=== PATIENT | female | born 1955 | race American Indian/Alaskan Native ===

== ENCOUNTER 2017-09-21 22:33 | Inpatient (IN) | payer BC ==
[2017-09-22 19:49] VITALS: BMI 40.5
--- NOTE | 2017-09-22 20:45 | CP.PCM.HP ---
History of Present Illness - History of Present Illness History of Present Illness: CC: here for rehab after L sided CVA HPI: This is a 62 y/o female with MHx significant for DM2, HLD, and HTN who is here for rehab after suffering a L sided CVA with residual L sided deficits in strength. Patient states that on 09/20 she had gone into [facility] ER with sudden onset R sided weakness and slurred speech, along with unsteady gait. Patient was admitted from the ER, and by the time she had arrived there her symptoms had started to resolve and NIHSS at that time did not warrant treatment with TPA. Patient had (likely MRI) imaging indicating acute L pontine CVA, though actual report does not appear to be in packet. Since that time patient has been improving but states she still has R sided UE/LE weakness. Denies CP, SOB, THAKUR; denies f/c/n/v/d. ROS: 14 systems reviewed, negative other than HPI MHx: DM2, HLD, HTN, L CVA SHx: None Allergies: NKDA Family Hx: No relevant family Hx per patient Social Hx: Lives with family, no tobacco, no EtOH Surrogate Dec Mkr: , info on chart Present on Admission - Present on Admission Any Indicators Present on Admission: No Meds Allergies/Adverse Reactions: Allergies Allergy/AdvReac Type Severity Reaction Status Date / Time No Known Allergies Allergy Verified 09/22/17 19:48 Physical Exam - Constitutional Appears: No Acute Distress - Head Exam Head Exam: ATRAUMATIC, NORMOCEPHALIC - Eye Exam Eye Exam: EOMI, PERRL - ENT Exam ENT Exam: Mucous Membranes Moist - Neck Exam Neck exam: Positive for: Full Rom - Respiratory Exam Respiratory Exam: Clear to Auscultation Bilateral, NORMAL BREATHING PATTERN - Cardiovascular Exam Cardiovascular Exam: REGULAR RHYTHM, +S1, +S2 - GI/Abdominal Exam GI & Abdominal Exam: Normal Bowel Sounds, Soft - Extremities Exam Extremities exam: Positive for: full ROM Additional comments: subtle weakness in R U/LE vs L U/LE, but still strength 5/5 throughout - Neurological Exam Neurological exam: Alert, CN II-XII Intact, Oriented x3 - Psychiatric Exam Psychiatric exam: Normal Affect, Normal Mood - Skin Skin Exam: Dry, Warm Assessment & Plan (1) Left pontine CVA Assessment and Plan: 62 y/o female with HTN, HLD, DM2 p/w L pontine CVA. 1) CVA -Cont ASA, Plavix, Statin -BP control -PT/OT, Rehab consult -Consider Echo if no documentation found as part of w/u 2) DM2 -Cont metformin -ACHS accucheck; SSI -DM diet 3) HTN -- cont BP medications from [facility] [place] 4) PPx -- SQ Lovenox, add protonix for GI PPx while on lovenox/asa/plavix Status: Acute (2) HTN (hypertension) Status: Acute (3) DM2 (diabetes mellitus, type 2) Status: Acute (4) HLD (hyperlipidemia) Status: Acute (5) DVT prophylaxis Status: Acute
[2017-09-22] MEDS: Insulin Lispro (humaLOG) 100 Units/ml Inj SC SCH (22:00)
[2017-09-23 07:17] LABS: HEMOGLOBIN 13.1 g/dL (12.0-16.0); MEAN CELL VOLUME 86.1 fl (81.0-99.0); MEAN CORPUSCULAR HEMOGLOBIN 28.4 pg (27.0-31.0); MEAN CORPUSCULAR HGB CONC 32.9 g/dL (33.0-37.0); RBC 4.62 Mil/uL (3.80-5.20); RED CELL DISTRIBUTION WIDTH 13.8 % (11.5-14.5); WHITE BLOOD COUNT 4.1 K/uL (4.8-10.8)
[2017-09-23] MEDS: Insulin Lispro (humaLOG) 100 Units/ml Inj SC SCH ×4 (07:22→21:28)
[2017-09-23 07:48] LABS: BLOOD UREA NITROGEN 14 mg/dl (7-17); CALCIUM 9.5 mg/dL (8.4-10.2); GFR AFRICAN-AMERICAN > 60; GFR NON-AFRICAN AMERICAN > 60
[2017-09-23] MEDS: Enoxaparin 40 mg Syringe SC SCH (08:30)
[2017-09-23] MEDS: Pantoprazole 40 mg EC Tab PO SCH (08:31)
[2017-09-23] MEDS ORDERED: Enoxaparin 40 mg Syringe SC SCH (09:00)
--- NOTE | 2017-09-23 13:54 | CP.PCM.CON ---
History of Present Illness - History of Present Illness History of Present Illness: Dr Hunt Coverage for Dr Hyman on Joselin Young, born 1955 who has been admitted to [facility] for acute inpatient rehabilitation. She is right hand dominant and had been in her usual state of health, not requiring an assistive device and was independent in her ADLs. She suffered a left CVA with right HP. She has fair neurological recovery to this point Review of Systems - Constitutional Constitutional: absent: Anorexia, Chills, Daytime Sleepiness - EENT Eyes: absent: Blind Spots Ears: absent: Decreased Hearing Nose/Mouth/Throat: absent: Nasal Congestion - Cardiovascular Cardiovascular: absent: Chest Pain - Respiratory Respiratory: absent: Dyspnea, Hemoptysis - Gastrointestinal Gastrointestinal: Constipation (for 3 days). absent: Belching - Genitourinary Genitourinary: absent: Dysuria - Musculoskeletal Musculoskeletal: absent: Back Pain - Integumentary Integumentary: absent: Bleeding Lesions - Neurological Neurological: Weakness. absent: Abnormal Movements, Tremor - Psychiatric Psychiatric: absent: Anxiety Past Patient History - Past Medical History & Family History Past Medical History?: Yes - Past Social History Smoking Status: Former Smoker Alcohol: None Drugs: Denies Home Situation {Lives}: With Family () - CARDIAC Hx Cardiac Disorders: Yes Hx Hypercholesterolemia: Yes Hx Hypertension: Yes - PULMONARY Hx Respiratory Disorders: No - NEUROLOGICAL HX Cerebrovascular Accident: Yes (09/20/2017) - HEENT Hx HEENT Problems: Yes Other/Comment: uses eyeglasses for reading - RENAL Hx Chronic Kidney Disease: No - ENDOCRINE/METABOLIC Hx Endocrine Disorders: Yes Hx Diabetes Mellitus Type 2: Yes - HEMATOLOGICAL/ONCOLOGICAL Hx Blood Disorders: No Hx AIDS: No Hx Human Immunodeficiency Virus (HIV): No - INTEGUMENTARY Hx Dermatological Problems: No - MUSCULOSKELETAL/RHEUMATOLOGICAL Hx Musculoskeletal Disorders: No Hx Falls: No - GASTROINTESTINAL Hx Gastrointestinal Disorders: No - GENITOURINARY/GYNECOLOGICAL Hx Genitourinary Disorders: No - PSYCHIATRIC Hx Psychophysiologic Disorder: No Hx Substance Use: No - SURGICAL HISTORY Hx Surgeries: Yes Other/Comment: surgery in ovary per patient - ANESTHESIA Hx Anesthesia: Yes Hx Anesthesia Reactions: No Hx Malignant Hyperthermia: No Meds Allergies/Adverse Reactions: Allergies Allergy/AdvReac Type Severity Reaction Status Date / Time No Known Allergies Allergy Verified 09/22/17 19:48 - Medications Medications: Current Medications Aspirin (Ecotrin) 81 mg PO DAILY [facility] Last Admin: 09/23/17 08:29 Dose: 81 mg Atorvastatin Calcium (Lipitor) 40 mg PO HS [facility] Last Admin: 09/22/17 23:01 Dose: 40 mg Clopidogrel Bisulfate (Plavix) 75 mg PO DAILY [facility] Last Admin: 09/23/17 08:30 Dose: 75 mg Enoxaparin Sodium (Lovenox) 40 mg SC DAILY [facility] PRN Reason: Protocol Last Admin: 09/23/17 08:30 Dose: 40 mg Hydrochlorothiazide (Hydrodiuril) 25 mg PO DAILY [facility] Last Admin: 09/23/17 08:30 Dose: 25 mg Insulin Human Lispro (Humalog) 0 units SC [facility] PRN Reason: Protocol Last Admin: 09/23/17 11:59 Dose: Not Given Losartan Potassium (Cozaar) 100 mg PO DAILY [facility] Last Admin: 09/23/17 08:29 Dose: 100 mg Metformin HCl (Glucophage) 1,000 mg PO BIDWM [facility] Last Admin: 09/23/17 08:30 Dose: 1,000 mg Pantoprazole Sodium (Protonix Ec Tab) 40 mg PO DAILY [facility] Last Admin: 09/23/17 08:31 Dose: 40 mg Physical Exam - Constitutional Appears: Well, Non-toxic, No Acute Distress - Head Exam Head Exam: ATRAUMATIC, NORMAL INSPECTION, NORMOCEPHALIC - Eye Exam Eye Exam: EOMI, Normal appearance - ENT Exam ENT Exam: Mucous Membranes Moist - Respiratory Exam Respiratory Exam: NORMAL BREATHING PATTERN - Cardiovascular Exam Cardiovascular Exam: REGULAR RHYTHM - GI/Abdominal Exam GI & Abdominal Exam: Distended. absent: Firm, Guarding - Extremities Exam Extremities exam: Negative for: calf tenderness, pedal edema - Neurological Exam Neurological exam: Alert, CN II-XII Intact, Oriented x3 - Psychiatric Exam Psychiatric exam: Normal Affect, Normal Mood - Skin Skin Exam: Warm Results - Vital Signs Recent Vital Signs: Last Vital Signs Temp 97.0 F L 09/23/17 09:48 Pulse 59 L 09/23/17 09:48 Resp 21 09/23/17 09:48 BP 160/73 H 09/23/17 09:48 Pulse Ox 97 09/23/17 09:48 - Labs Result Diagrams: 09/23/17 05:20 09/23/17 05:20 Labs: Laboratory Results - last 24 hr 09/22/17 09/23/17 09/23/17 21:53 05:20 05:20 WBC 4.1 L RBC 4.62 Hgb 13.1 Hct 39.8 MCV 86.1 MCH 28.4 MCHC 32.9 L RDW 13.8 Plt Count 239 Sodium 142 Potassium 3.6 Chloride 101 Carbon Dioxide 28 Anion Gap 17 BUN 14 Creatinine 0.9 Est GFR ( Amer) > 60 Est GFR (Non-Af Amer) > 60 POC Glucose (mg/dL) 135 H Random Glucose 123 H Calcium 9.5 09/23/17 09/23/17 05:24 11:53 WBC RBC Hgb Hct MCV MCH MCHC RDW Plt Count Sodium Potassium Chloride Carbon Dioxide Anion Gap BUN Creatinine Est GFR ( Amer) Est GFR (Non-Af Amer) POC Glucose (mg/dL) 111 H 113 H Random Glucose Calcium Assessment & Plan - Assessment and Plan (Free Text) Assessment: PT/OT to continue to help increase functional independence Team conference for d/c planning Pain: controlled Vascular: no evidence of DVT GI: + constipation. Will increase bowel regimen and give fleets tonight Patient is an excellent acute rehabilitation candidate and will have focused PT, OT and recreational therapy to help facilitate a safe and appropriate d/c plan Impairment code: 01.2
--- NOTE | 2017-09-23 13:58 | PCM.OPOC ---
Physiatry Overall Plan of Care - Overall Plan of Care Estimated Length of Stay in Weeks: 3 Rehab Impairment: Mobility, Gait, Balance, Coordination Etiologic Diagnosis: Cerebrovascular Accident Rehab/Medical Prognosis: Good - Anticipated Interventions Physical Therapy:: Yes Occupational Therapy:: Yes Speech Therapy:: No Recreational Therapy:: Yes - Therapy Goals Bed Mobility: Supervision Ambulation: Supervision Functional Positional Changes:: Supervision - Discharge Plan Discharge Destination: Home
[2017-09-23] MEDS ORDERED: Magnesium Hydroxide Susp 30 ml UD PO PRN (14:03)
[2017-09-24] MEDS: Insulin Lispro (humaLOG) 100 Units/ml Inj SC SCH (07:00)
[2017-09-24] MEDS: Pantoprazole 40 mg EC Tab PO SCH (08:09)
[2017-09-24] MEDS: Enoxaparin 40 mg Syringe SC SCH (08:10)
--- NOTE | 2017-09-24 11:40 | CP.PCM.PN ---
Subjective - Date & Time of Evaluation Date of Evaluation: 09/24/17 Time of Evaluation: 10:00 - Subjective Subjective: Patient seen and examined in her room. No new complaints. Tolerating therapies well. Denies f/c/n/v/d/cp/sob. Objective - Vital Signs/Intake and Output Vital Signs (last 24 hours): Temp Pulse Resp BP Pulse Ox 97.9 F 77 20 156/68 H 98 09/24/17 10:00 09/24/17 10:00 09/24/17 10:00 09/24/17 10:00 09/24/17 10:00 - Medications Medications: Current Medications Aspirin (Ecotrin) 81 mg PO DAILY [facility] Last Admin: 09/24/17 08:09 Dose: 81 mg Atorvastatin Calcium (Lipitor) 40 mg PO HS [facility] Last Admin: 09/23/17 21:28 Dose: 40 mg Clopidogrel Bisulfate (Plavix) 75 mg PO DAILY [facility] Last Admin: 09/24/17 08:09 Dose: 75 mg Diltiazem HCl (Cardizem Cd) 180 mg PO DAILY [facility] Docusate Sodium (Colace) 100 mg PO BID [facility] Last Admin: 09/24/17 08:08 Dose: 100 mg Enoxaparin Sodium (Lovenox) 40 mg SC DAILY [facility] PRN Reason: Protocol Last Admin: 09/24/17 08:10 Dose: 40 mg Hydrochlorothiazide (Hydrodiuril) 25 mg PO DAILY [facility] Last Admin: 09/24/17 08:09 Dose: 25 mg Insulin Human Lispro (Humalog) 0 units SC 0630 [facility] PRN Reason: Protocol Losartan Potassium (Cozaar) 100 mg PO DAILY [facility] Last Admin: 09/24/17 08:09 Dose: 100 mg Magnesium Hydroxide (Milk Of Magnesia) 30 ml PO DAILY [facility] PRN Reason: Constipation Last Admin: 09/23/17 14:32 Dose: 30 ml Metformin HCl (Glucophage) 1,000 mg PO BIDWM [facility] Last Admin: 09/24/17 08:09 Dose: 1,000 mg Pantoprazole Sodium (Protonix Ec Tab) 40 mg PO DAILY [facility] Last Admin: 09/24/17 08:09 Dose: 40 mg - Labs Labs: 09/23/17 05:20 09/23/17 05:20 - Additional Findings Additional findings: Physical exam: Constitutional- cooperative, awake, alert Head- NCAT, PERRL Eye- PERRL, EOMI ENT- normal exam, MMM. Neck- normal inspection, supple, no JVD Respiratory- CTAB, no wheezes rales rhonchi Cardiovascular- RRR, +S1, +S2 no MRG GI/Abdominal- normal bowel sounds, soft, no mass, no hsm Skin- warm, dry Extremities Exam- normal capillary refill, normal inspection Neurological Exam- mild right upper extremity weakness. Alert, awake, oriented Psych- normal mood, normal affect Assessment and Plan - Assessment and Plan (Free Text) Plan: This is a 62 y/o female with MHx significant for DM2, HLD, and HTN who is admitted to [facility] acute rehab after suffering a L sided CVA with residual L sided deficits in strength. Patient states that on 09/20 she had gone into [facility] [place] with sudden onset R sided weakness and slurred speech, along with unsteady gait. Patient was admitted from the ER, and by the time she had arrived there her symptoms had started to resolve and NIHSS at that time did not warrant treatment with TPA. Patient had imaging indicating acute L pontine CVA. Since that time patient has been improving but states she still has R sided UE/LE weakness. (1) Left pontine CVA Assessment and Plan: 62 y/o female with HTN, HLD, DM2 p/w L pontine CVA. 1) CVA -Cont ASA, Plavix, Statin -BP control -PT/OT, Rehab consult -Consider Echo if no documentation found as part of w/u 2) DM2 -Cont metformin -d/c accuchek and sliding scale- patient controlled without it -DM diet 3) HTN -- cont [place] medications [place] [facility] 4) PPx -- SQ Lovenox, add protonix for GI PPx while on lovenox/asa/plavix Status: Acute (2) HTN (hypertension) Status: Acute (3) DM2 (diabetes mellitus, type 2) Status: Acute (4) HLD (hyperlipidemia) Status: Acute (5) DVT prophylaxis Status: Acute
[2017-09-24] MEDS: diltiaZEM 180 mg/24 Hours CD Cap PO SCH (12:24)
[2017-09-25] MEDS: Insulin Lispro (humaLOG) 100 Units/ml Inj SC SCH (06:29)
[2017-09-25] MEDS: diltiaZEM 180 mg/24 Hours CD Cap PO SCH (08:20)
[2017-09-25] MEDS: Enoxaparin 40 mg Syringe SC SCH (08:20)
[2017-09-25] MEDS: Pantoprazole 40 mg EC Tab PO SCH (08:22)
[2017-09-25 16:29] LABS: HEMOGLOBIN 13.9 g/dL (12.0-16.0); MEAN CELL VOLUME 86.2 fl (81.0-99.0); MEAN CORPUSCULAR HEMOGLOBIN 28.7 pg (27.0-31.0); MEAN CORPUSCULAR HGB CONC 33.3 g/dL (33.0-37.0); RBC 4.85 Mil/uL (3.80-5.20); RED CELL DISTRIBUTION WIDTH 14.2 % (11.5-14.5); WHITE BLOOD COUNT 4.8 K/uL (4.8-10.8)
[2017-09-25 16:44] LABS: BLOOD UREA NITROGEN 16 mg/dl (7-17); GFR AFRICAN-AMERICAN > 60; GFR NON-AFRICAN AMERICAN > 60
[2017-09-25] MEDS: Sodium Chloride 0.9% 1,000 ML IV SCH (16:51)
--- NOTE | 2017-09-25 19:26 | CP.PCM.PN ---
Subjective - Date & Time of Evaluation Date of Evaluation: 09/25/17 Time of Evaluation: 13:00 - Subjective Subjective: patient with no complaints of any pain, problems with strenght and balance Objective - Vital Signs/Intake and Output Vital Signs (last 24 hours): Temp Pulse Resp BP Pulse Ox 97.7 F 67 20 125/58 L 100 09/25/17 07:57 09/25/17 08:21 09/25/17 07:57 09/25/17 08:21 09/25/17 07:57 - Medications Medications: Current Medications Aspirin (Ecotrin) 81 mg PO DAILY [facility] Last Admin: 09/25/17 08:21 Dose: 81 mg Atorvastatin Calcium (Lipitor) 40 mg PO HS [facility] Last Admin: 09/24/17 21:14 Dose: 40 mg Clopidogrel Bisulfate (Plavix) 75 mg PO DAILY [facility] Last Admin: 09/25/17 08:22 Dose: 75 mg Diltiazem HCl (Cardizem Cd) 180 mg PO DAILY [facility] Last Admin: 09/25/17 08:20 Dose: 180 mg Docusate Sodium (Colace) 100 mg PO BID [facility] Last Admin: 09/25/17 16:51 Dose: Not Given Enoxaparin Sodium (Lovenox) 40 mg SC DAILY [facility] PRN Reason: Protocol Last Admin: 09/25/17 08:20 Dose: 40 mg Hydrochlorothiazide (Hydrodiuril) 25 mg PO DAILY [facility] Last Admin: 09/25/17 08:21 Dose: 25 mg Sodium Chloride (Sodium Chloride 0.9%) 1,000 mls @ 60 mls/hr IV .[id number] [facility] Stop: 09/26/17 13:32 Last Admin: 09/25/17 16:51 Dose: 60 mls/hr Insulin Human Lispro (Humalog) 0 units SC 0630 [facility] PRN Reason: Protocol Last Admin: 09/25/17 06:29 Dose: Not Given Losartan Potassium (Cozaar) 100 mg PO DAILY [facility] Last Admin: 09/25/17 08:21 Dose: 100 mg Magnesium Hydroxide (Milk Of Magnesia) 30 ml PO DAILY [facility] PRN Reason: Constipation Last Admin: 09/23/17 14:32 Dose: 30 ml Metformin HCl (Glucophage) 1,000 mg PO BIDWM [facility] Last Admin: 09/25/17 16:51 Dose: 1,000 mg Ondansetron HCl (Zofran Inj) 4 mg IVP Q6 PRN PRN Reason: Nausea/Vomiting Last Admin: 09/25/17 13:50 Dose: 4 mg Pantoprazole Sodium (Protonix Ec Tab) 40 mg PO DAILY [facility] Last Admin: 09/25/17 08:22 Dose: 40 mg - Labs Labs: 09/25/17 16:16 09/25/17 16:16 - Head Exam Head Exam: ATRAUMATIC, NORMAL INSPECTION, NORMOCEPHALIC - Eye Exam Eye Exam: EOMI, Normal appearance, PERRL - ENT Exam ENT Exam: Mucous Membranes Moist, Normal Exam - Neck Exam Neck Exam: Full ROM, Normal Inspection. absent: Lymphadenopathy - Respiratory Exam Respiratory Exam: Clear to Ausculation Bilateral, NORMAL BREATHING PATTERN - Cardiovascular Exam Cardiovascular Exam: REGULAR RHYTHM, +S1, +S2. absent: Murmur - GI/Abdominal Exam GI & Abdominal Exam: Soft, Normal Bowel Sounds. absent: Tenderness - Rectal Exam Rectal Exam: NORMAL INSPECTION - Exam External exam: NORMAL EXTERNAL EXAM - Extremities Exam Extremities Exam: Full ROM, Normal Capillary Refill, Normal Inspection. absent : Joint Swelling, Pedal Edema - Neurological Exam Neurological Exam: Alert Neuro motor strength exam: Left Upper Extremity: 3, Right Upper Extremity: 3, Left Lower Extremity: 3, Right Lower Extremity: 3 Additional comments: problems with balance and coordination Assessment and Plan (1) DM2 (diabetes mellitus, type 2) Status: Acute (2) HLD (hyperlipidemia) Status: Acute (3) HTN (hypertension) Status: Acute (4) Left pontine CVA Assessment & Plan: plan for physical, occupational , rec and speech therapy Status: Acute
[2017-09-26] MEDS: Insulin Lispro (humaLOG) 100 Units/ml Inj SC SCH (06:34)
[2017-09-26] MEDS: Sodium Chloride 0.9% 1,000 ML IV SCH (06:35)
[2017-09-26] MEDS: diltiaZEM 180 mg/24 Hours CD Cap PO SCH (08:30)
[2017-09-26] MEDS: Enoxaparin 40 mg Syringe SC SCH (08:30)
[2017-09-26] MEDS: Pantoprazole 40 mg EC Tab PO SCH (08:31)
--- NOTE | 2017-09-26 12:22 | PSY.TMCNF ---
Nursing - Vital Signs Vital Signs (Last 8 hours): Vital Signs 09/26/17 09/26/17 09/26/17 08:03 08:30 08:31 Temperature 97.7 F Pulse Rate 73 73 73 Respiratory 20 Rate Blood Pressure 145/66 145/66 145/66 O2 Sat by Pulse 100 Oximetry Pain: 0 - Medications/Other Issues Comment: Pt at low nutritional risk. no goals. Follow-up due on 10/03/2017 - Bladder Management Bladder Pattern: Normal Voiding Method: Toilet - Bowel Management Bowel Pattern: Normal - Goals/Time Frame Comments: Pt was seen following OT session and agreeable to evaluation session. Pt was able to identify her leisure interests such as playing games on her tablet, cooking, cleaning, and spending time with family. 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 Pt reported that her goal is to return to work. Pt reported decrease R UE and decrease LE strength. Pt's mood was stable-positive during time of visit. Pt returned to room with family present. Physical Therapy - Bed Mobility Bed Mobility: Verbal Cues, Minimal Assistance Comment: vc for sequencing and safety - Transfers Wheelchair to Mat: Verbal Cues, Minimal Assistance Sit to Stand: Verbal Cues, Minimal Assistance Comment: vc for sequencing and safety, tamera hand placement during t/f - Ambulation Level of Assistance: Supervision Distance (ft.): 150 Assistive Devices: Single point cane - Stair Negotiation Stairs: Level of Assistance: Contact Guard Number of Stairs: 11 Stairs: Assistive Devices: Right Handrail - Standing Balance Static Stand: Minimal Assistance Dynamic Stand: Minimal Assistance, Moderate Assistance Comment: w/ RW - Pain Pain (assessed during therapy session): 0 - Insight/Carryover Insight/Carryover: Good - Patient/Family Education Comment: Patient was educated about AE, DME, safety, OT goals and plan of care. - Assessment/Plan Assessment: Patient is a 62 yo female demonstrates decreased standing balance/ tolerance, endurance, fine motor control and coordination, and hand strength, impacting increased independence with ADLs and functional activities. Patient will benefit from skilled OT services 5-6x/week to address above deficits to increase independence for discharge. [ End ] - Goals Timeframe: 2 weeks Goals: mod I tub bench transfers. mod I commode transfers. mod I transfers to bed and w/c. mod I lb self care. mod I Ub self care. mod I light home mgmt - Provider Therapist: Surekha Webb PT License Number: [id number] Occupational Therapy - Arousal/Attention/Orientation Patient Orientation: Person, Place, Time, Appropriate to Age, Appropriate to Situation - ADL/IADL Self Feeding: Supervision, Set-up Help Grooming: Supervision, Set-up Help Bathing-Upper Extremity: Minimal Assistance Bathing-Lower Extremity: Maximum Assistance Dressing-Upper Extremity: Minimal Assistance Dressing-Lower Extremity: Maximum Assistance - Sitting Balance Static Sitting: Independent without upper extremity support Dynamic Sitting: Requires supervision - Transfers Wheelchair to Bed Transfers: Minimal Assistance Toilet Transfers: Minimal Assistance - Wheelchair Management Level of Assistance: Minimal Assistance - Upper Extremity Status Right Upper Extremity Comment: WFL Left Upper Extremity Comment: WFL - Pain Pain (assessed during therapy session): 0 - Insight/Carryover Insight/Carryover: Good - Patient/Family Education Comment: Patient was educated about AE, DME, safety, OT goals and plan of care. - Assessment/Plan Assessment: Patient is a 62 yo female demonstrates decreased standing balance/ tolerance, endurance, fine motor control and coordination, and hand strength, impacting increased independence with ADLs and functional activities. Patient will benefit from skilled OT services 5-6x/week to address above deficits to increase independence for discharge. [ End ] - Goals Timeframe: 2 weeks Goals: mod I tub bench transfers. mod I commode transfers. mod I transfers to bed and w/c. mod I lb self care. mod I Ub self care. mod I light home mgmt - Provider Therapist: DANIEL Young/[facility] - Plan Assessment: Patient is a 62 yo female demonstrates decreased standing balance/ tolerance, endurance, fine motor control and coordination, and hand strength, impacting increased independence with ADLs and functional activities. Patient will benefit from skilled OT services 5-6x/week to address above deficits to increase independence for discharge. [ End ] Recreational Therapy - Participation Participation: Participates in Individual and/or Group Sessions - Attendance Attendance: 3-5 times per week - Activities Leisure Activities: Cards and Games - Socialization Level of Socialization: Initiates/interacts freely with care givers and peer - Assessment Assessment/Plan: Patient is a 62 yo female demonstrates decreased standing balance/tolerance, endurance, fine motor control and coordination, and hand strength, impacting increased independence with ADLs and functional activities. Patient will benefit from skilled OT services 5-6x/week to address above deficits to increase independence for discharge. [ End ] - Provider Therapist: Vandana Kc, [employer] #[id number] Nutrition - Current Diet Current Diet/ Supplement/ Feedings: Moderate consistent CHO heart healthy - Appetite Percent Meal Consumed: 75-100% - Assessment/Goals/Time Frame Assessment/Goals/Time Frame: Pt at low nutritional risk. no goals. Follow-up due on 10/03/2017 - Provider Provider: Shanika Tucker RD Case Management - Discharge Plan Discharge Plan: Home with significant other/family Rehabilitation Plan - Treatment Plan Treatment Plan: Physical Therapy, Occupational Therapy, Speech, Dietary, Patient /Family Education - Recommendation Recommendation: Physical Therapy, Occupational Therapy, Speech, Dietary, Patient /Family Education - Discharge Plan Discharge to: Home (october 11)
--- NOTE | 2017-09-26 13:13 | CP.PCM.PN ---
Subjective - Date & Time of Evaluation Date of Evaluation: 09/26/17 Time of Evaluation: 10:30 - Subjective Subjective: Patient seen and examined. Denied any complaint. Claimed she is doing better with PT/OT. Objective - Vital Signs/Intake and Output Vital Signs (last 24 hours): Temp Pulse Resp BP Pulse Ox 97.7 F 73 20 145/66 100 09/26/17 08:03 09/26/17 08:31 09/26/17 08:03 09/26/17 08:31 09/26/17 08:03 - Medications Medications: Current Medications Aspirin (Ecotrin) 81 mg PO DAILY REPLACED BY [facility] Last Admin: 09/26/17 08:31 Dose: 81 mg Atorvastatin Calcium (Lipitor) 40 mg PO HS REPLACED BY [facility] Last Admin: 09/25/17 21:07 Dose: 40 mg Clopidogrel Bisulfate (Plavix) 75 mg PO DAILY [facility] Last Admin: 09/26/17 08:31 Dose: 75 mg Diltiazem HCl (Cardizem Cd) 180 mg PO DAILY [facility] BY [facility] Last Admin: 09/26/17 08:30 Dose: 180 mg Docusate Sodium (Colace) 100 mg PO BID REPL[facility]ED BY [facility] Last Admin: 09/26/17 08:32 Dose: Not Given Enoxaparin Sodium (Lovenox) 40 mg SC DAILY [facility]PL[facility]ED BY [facility] PRN Reason: Protocol Last Admin: 09/26/17 08:30 Dose: 40 mg Hydrochlorothiazide (Hydrodiuril) 25 mg PO DAILY REPLACED BY [facility] Last Admin: 09/26/17 08:31 Dose: 25 mg Sodium Chloride (Sodium Chloride 0.9%) 1,000 mls @ 60 mls/hr IV .[id number] REPLACED BY [facility] Stop: 09/26/17 13:32 Last Admin: 09/26/17 06:35 Dose: 60 mls/hr Insulin Human Lispro (Humalog) 0 units SC 0630 REPLACED BY [facility] PRN Reason: Protocol Last Admin: 09/26/17 06:34 Dose: Not Given Losartan Potassium (Cozaar) 100 mg PO DAILY [facility]PL[facility]ED BY [facility] Last Admin: 09/26/17 08:31 Dose: 100 mg Magnesium Hydroxide (Milk Of Magnesia) 30 ml PO DAILY PRN PRN Reason: Constipation Last Admin: 09/23/17 14:32 Dose: 30 ml Metformin HCl (Glucophage) 1,000 mg PO BIDWM REPLACED BY [facility] Last Admin: 02/28/18 08:31 Dose: 1,000 mg Ondansetron HCl (Zofran Inj) 4 mg IVP Q6 PRN PRN Reason: Nausea/Vomiting Last Admin: 09/25/17 13:50 Dose: 4 mg Pantoprazole Sodium (Protonix Ec Tab) 40 mg PO DAILY [facility] Last Admin: 09/26/17 08:31 Dose: 40 mg - Labs Labs: 09/25/17 16:16 09/25/17 16:16 - Constitutional Appears: No Acute Distress - Head Exam Head Exam: ATRAUMATIC - Eye Exam Eye Exam: absent: Scleral icterus - ENT Exam ENT Exam: Mucous Membranes Moist - Neck Exam Neck Exam: absent: Meningismus - Respiratory Exam Respiratory Exam: absent: Rhonchi, Wheezes, Respiratory Distress - Cardiovascular Exam Cardiovascular Exam: REGULAR RHYTHM, +S1, +S2 - GI/Abdominal Exam GI & Abdominal Exam: Soft. absent: Tenderness - Rectal Exam Rectal Exam: Deferred - Neurological Exam Neurological Exam: Alert, Oriented x3 - Psychiatric Exam Psychiatric exam: Normal Affect - Skin Skin Exam: Dry, Intact Assessment and Plan - Assessment and Plan (Free Text) Assessment: 62 yo female with history of DM2, HLD and HTN was admitted at [facility] on 09/20/2017 because of sudden onset of right sided weakness and slurred speech which resolved by the time she was seen in the ER. However imaging showed acute left pontine infarct. She was transferred to [facility] for acute rehab. 1. CVA continue ASA, Plavix and statin BP control continue PT/OT 2. DM2 BS controlled continue Metformin 3. HTN BP stable continue Dlitiazem, HCTZ and Losartan 4. DVT prophylaxis on Lovenox
--- NOTE | 2017-09-26 14:36 | CP.PCM.PN ---
Subjective - Date & Time of Evaluation Date of Evaluation: 09/24/17 Time of Evaluation: 15:00 - Subjective Subjective: no acute complaints at present Objective - Vital Signs/Intake and Output Vital Signs (last 24 hours): Temp Pulse Resp BP Pulse Ox 97.7 F 73 20 145/66 100 09/26/17 08:03 09/26/17 08:31 09/26/17 08:03 09/26/17 08:31 09/26/17 08:03 - Medications Medications: Current Medications Aspirin (Ecotrin) 81 mg PO DAILY [facility] Last Admin: 09/26/17 08:31 Dose: 81 mg Atorvastatin Calcium (Lipitor) 40 mg PO HS [facility] Last Admin: 09/25/17 21:07 Dose: 40 mg Clopidogrel Bisulfate (Plavix) 75 mg PO DAILY [facility] Last Admin: 09/26/17 08:31 Dose: 75 mg Diltiazem HCl (Cardizem Cd) 180 mg PO DAILY [facility] Last Admin: 09/26/17 08:30 Dose: 180 mg Docusate Sodium (Colace) 100 mg PO BID [facility] Last Admin: 09/26/17 08:32 Dose: Not Given Enoxaparin Sodium (Lovenox) 40 mg SC DAILY [facility] PRN Reason: Protocol Last Admin: 09/26/17 08:30 Dose: 40 mg Hydrochlorothiazide (Hydrodiuril) 25 mg PO DAILY [facility] Last Admin: 09/26/17 08:31 Dose: 25 mg Insulin Human Lispro (Humalog) 0 units SC 0630 [facility] PRN Reason: Protocol Last Admin: 09/26/17 06:34 Dose: Not Given Losartan Potassium (Cozaar) 100 mg PO DAILY [facility] Last Admin: 09/26/17 08:31 Dose: 100 mg Magnesium Hydroxide (Milk Of Magnesia) 30 ml PO DAILY PRN PRN Reason: Constipation Last Admin: 09/23/17 14:32 Dose: 30 ml Metformin HCl (Glucophage) 1,000 mg PO BIDWM [facility] Last Admin: 09/26/17 08:31 Dose: 1,000 mg Ondansetron HCl (Zofran Inj) 4 mg IVP Q6 PRN PRN Reason: Nausea/Vomiting Last Admin: 09/25/17 13:50 Dose: 4 mg Pantoprazole Sodium (Protonix Ec Tab) 40 mg PO DAILY [facility] Last Admin: 09/26/17 08:31 Dose: 40 mg - Labs Labs: 09/25/17 16:16 09/25/17 16:16 - Head Exam Head Exam: ATRAUMATIC, NORMAL INSPECTION, NORMOCEPHALIC - Eye Exam Eye Exam: EOMI, Normal appearance, PERRL Pupil Exam: NORMAL ACCOMODATION - ENT Exam ENT Exam: Mucous Membranes Moist, Normal Exam - Neck Exam Neck Exam: Full ROM, Normal Inspection - Respiratory Exam Respiratory Exam: NORMAL BREATHING PATTERN - Cardiovascular Exam Cardiovascular Exam: REGULAR RHYTHM - GI/Abdominal Exam GI & Abdominal Exam: Soft, Normal Bowel Sounds - Rectal Exam Rectal Exam: NORMAL INSPECTION - Exam External exam: NORMAL EXTERNAL EXAM - Extremities Exam Extremities Exam: Full ROM, Normal Capillary Refill, Normal Inspection - Back Exam Back Exam: NORMAL INSPECTION - Neurological Exam Neurological Exam: Alert, Awake Neuro motor strength exam: Left Upper Extremity: 3, Right Upper Extremity: 3, Left Lower Extremity: 3, Right Lower Extremity: 3 - Psychiatric Exam Psychiatric exam: Normal Affect, Normal Mood - Skin Skin Exam: Dry, Intact Assessment and Plan (1) DM2 (diabetes mellitus, type 2) Status: Acute (2) HLD (hyperlipidemia) Status: Acute (3) HTN (hypertension) Status: Acute (4) Left pontine CVA Assessment & Plan: plan for pt, ot, rec and speech therapy Status: Acute
--- NOTE | 2017-09-26 14:39 | CP.PCM.PN ---
Subjective - Date & Time of Evaluation Date of Evaluation: 09/26/17 Time of Evaluation: 12:00 - Subjective Subjective: no acute complaints at present Objective - Vital Signs/Intake and Output Vital Signs (last 24 hours): Temp Pulse Resp BP Pulse Ox 97.7 F 73 20 145/66 100 09/26/17 08:03 09/26/17 08:31 09/26/17 08:03 09/26/17 08:31 09/26/17 08:03 - Medications Medications: Current Medications Aspirin (Ecotrin) 81 mg PO DAILY [facility] Last Admin: 09/26/17 08:31 Dose: 81 mg Atorvastatin Calcium (Lipitor) 40 mg PO HS [facility] Last Admin: 09/25/17 21:07 Dose: 40 mg Clopidogrel Bisulfate (Plavix) 75 mg PO DAILY [facility] Last Admin: 09/26/17 08:31 Dose: 75 mg Diltiazem HCl (Cardizem Cd) 180 mg PO DAILY [facility] Last Admin: 09/26/17 08:30 Dose: 180 mg Docusate Sodium (Colace) 100 mg PO BID [facility] Last Admin: 09/26/17 08:32 Dose: Not Given Enoxaparin Sodium (Lovenox) 40 mg SC DAILY [facility] PRN Reason: Protocol Last Admin: 09/26/17 08:30 Dose: 40 mg Hydrochlorothiazide (Hydrodiuril) 25 mg PO DAILY [facility] Last Admin: 09/26/17 08:31 Dose: 25 mg Insulin Human Lispro (Humalog) 0 units SC 0630 [facility] PRN Reason: Protocol Last Admin: 09/26/17 06:34 Dose: Not Given Losartan Potassium (Cozaar) 100 mg PO DAILY [facility] Last Admin: 09/26/17 08:31 Dose: 100 mg Magnesium Hydroxide (Milk Of Magnesia) 30 ml PO DAILY PRN PRN Reason: Constipation Last Admin: 09/23/17 14:32 Dose: 30 ml Metformin HCl (Glucophage) 1,000 mg PO BIDWM [facility] Last Admin: 09/26/17 08:31 Dose: 1,000 mg Ondansetron HCl (Zofran Inj) 4 mg IVP Q6 PRN PRN Reason: Nausea/Vomiting Last Admin: 09/25/17 13:50 Dose: 4 mg Pantoprazole Sodium (Protonix Ec Tab) 40 mg PO DAILY [facility] Last Admin: 09/26/17 08:31 Dose: 40 mg - Labs Labs: 09/25/17 16:16 09/25/17 16:16 - Head Exam Head Exam: ATRAUMATIC, NORMAL INSPECTION, NORMOCEPHALIC - Eye Exam Eye Exam: EOMI, Normal appearance, PERRL - ENT Exam ENT Exam: Mucous Membranes Moist, Normal Exam - Neck Exam Neck Exam: Full ROM, Normal Inspection. absent: Lymphadenopathy - Respiratory Exam Respiratory Exam: Clear to Ausculation Bilateral, NORMAL BREATHING PATTERN - Cardiovascular Exam Cardiovascular Exam: REGULAR RHYTHM, +S1, +S2. absent: Murmur - GI/Abdominal Exam GI & Abdominal Exam: Soft, Normal Bowel Sounds. absent: Tenderness - Rectal Exam Rectal Exam: NORMAL INSPECTION - Exam External exam: NORMAL EXTERNAL EXAM - Extremities Exam Extremities Exam: Full ROM, Normal Capillary Refill, Normal Inspection. absent : Joint Swelling, Pedal Edema - Back Exam Back Exam: NORMAL INSPECTION - Neurological Exam Neuro motor strength exam: Left Upper Extremity: 3, Right Upper Extremity: 3, Left Lower Extremity: 3, Right Lower Extremity: 3 Additional comments: balance and coordination problems - Psychiatric Exam Psychiatric exam: Normal Affect, Normal Mood - Skin Skin Exam: Dry, Intact Assessment and Plan (1) DM2 (diabetes mellitus, type 2) Status: Acute (2) HLD (hyperlipidemia) Status: Acute (3) HTN (hypertension) Status: Acute (4) Left pontine CVA Assessment & Plan: plan pt, ot rec and speech therapy status post team conference for DC 10/06 Status: Acute
[2017-09-27] MEDS: Insulin Lispro (humaLOG) 100 Units/ml Inj SC SCH (07:55)
[2017-09-27] MEDS: diltiaZEM 180 mg/24 Hours CD Cap PO SCH (08:40)
[2017-09-27] MEDS: Enoxaparin 40 mg Syringe SC SCH (08:42)
[2017-09-27] MEDS: Pantoprazole 40 mg EC Tab PO SCH (08:42)
[2017-09-28] MEDS: Insulin Lispro (humaLOG) 100 Units/ml Inj SC SCH (06:30)
[2017-09-28 06:46] LABS: BLOOD UREA NITROGEN 15 mg/dl (7-17); CALCIUM 9.7 mg/dL (8.4-10.2); GFR AFRICAN-AMERICAN > 60; GFR NON-AFRICAN AMERICAN 57
[2017-09-28 07:28] LABS: HEMOGLOBIN 13.4 g/dL (12.0-16.0); MEAN CELL VOLUME 85.7 fl (81.0-99.0); MEAN CORPUSCULAR HEMOGLOBIN 28.8 pg (27.0-31.0); MEAN CORPUSCULAR HGB CONC 33.6 g/dL (33.0-37.0); RBC 4.64 Mil/uL (3.80-5.20); RED CELL DISTRIBUTION WIDTH 13.8 % (11.5-14.5); WHITE BLOOD COUNT 4.7 K/uL (4.8-10.8)
[2017-09-28] MEDS: Enoxaparin 40 mg Syringe SC SCH (08:52)
[2017-09-28] MEDS: Pantoprazole 40 mg EC Tab PO SCH (08:54)
[2017-09-28] MEDS: diltiaZEM 180 mg/24 Hours CD Cap PO SCH (08:54)
--- NOTE | 2017-09-28 10:50 | CP.PCM.PN ---
Subjective - Date & Time of Evaluation Date of Evaluation: 09/28/17 Time of Evaluation: 10:00 - Subjective Subjective: no acute complaints at present Objective - Vital Signs/Intake and Output Vital Signs (last 24 hours): Temp Pulse Resp BP Pulse Ox 97.7 F 69 22 143/69 98 09/28/17 09:29 09/28/17 09:29 09/28/17 09:29 09/28/17 09:29 09/28/17 09:29 - Medications Medications: Current Medications Aspirin (Ecotrin) 81 mg PO DAILY [facility] Last Admin: 09/28/17 08:54 Dose: 81 mg Atorvastatin Calcium (Lipitor) 40 mg PO HS [facility] Last Admin: 09/27/17 21:15 Dose: 40 mg Clopidogrel Bisulfate (Plavix) 75 mg PO DAILY [facility] Last Admin: 09/28/17 08:52 Dose: 75 mg Diltiazem HCl (Cardizem Cd) 180 mg PO DAILY [facility] Last Admin: 09/28/17 08:54 Dose: 180 mg Docusate Sodium (Colace) 100 mg PO BID [facility] Last Admin: 09/28/17 08:52 Dose: 100 mg Enoxaparin Sodium (Lovenox) 40 mg SC DAILY [facility] PRN Reason: Protocol Last Admin: 09/28/17 08:52 Dose: 40 mg Hydrochlorothiazide (Hydrodiuril) 25 mg PO DAILY [facility] Last Admin: 09/28/17 08:52 Dose: 25 mg Insulin Human Lispro (Humalog) 0 units SC 0630 [facility] PRN Reason: Protocol Last Admin: 09/28/17 06:30 Dose: Not Given Losartan Potassium (Cozaar) 100 mg PO DAILY [facility] Last Admin: 09/28/17 08:54 Dose: 100 mg Magnesium Hydroxide (Milk Of Magnesia) 30 ml PO DAILY PRN PRN Reason: Constipation Last Admin: 09/23/17 14:32 Dose: 30 ml Metformin HCl (Glucophage) 1,000 mg PO BIDWM [facility] Last Admin: 09/28/17 08:51 Dose: 1,000 mg Ondansetron HCl (Zofran Inj) 4 mg IVP Q6 PRN PRN Reason: Nausea/Vomiting Last Admin: 09/25/17 13:50 Dose: 4 mg Pantoprazole Sodium (Protonix Ec Tab) 40 mg PO DAILY [facility] Last Admin: 09/28/17 08:54 Dose: 40 mg - Labs Labs: 09/28/17 05:20 09/28/17 05:20 - Head Exam Head Exam: ATRAUMATIC, NORMAL INSPECTION, NORMOCEPHALIC - Eye Exam Eye Exam: EOMI, Normal appearance, PERRL Pupil Exam: NORMAL ACCOMODATION, PERRL - ENT Exam ENT Exam: Mucous Membranes Moist, Normal Exam - Neck Exam Neck Exam: Full ROM, Normal Inspection. absent: Lymphadenopathy - Respiratory Exam Respiratory Exam: Clear to Ausculation Bilateral, NORMAL BREATHING PATTERN - Cardiovascular Exam Cardiovascular Exam: REGULAR RHYTHM, +S1, +S2. absent: Murmur - GI/Abdominal Exam GI & Abdominal Exam: Soft, Normal Bowel Sounds. absent: Tenderness - Rectal Exam Rectal Exam: NORMAL INSPECTION - Exam External exam: NORMAL EXTERNAL EXAM - Extremities Exam Extremities Exam: Full ROM, Normal Capillary Refill, Normal Inspection. absent : Joint Swelling, Pedal Edema - Back Exam Back Exam: NORMAL INSPECTION - Neurological Exam Neurological Exam: Alert, Awake Neuro motor strength exam: Left Upper Extremity: 3, Right Upper Extremity: 3, Left Lower Extremity: 3, Right Lower Extremity: 3 Additional comments: problems with balance and coordination - Psychiatric Exam Psychiatric exam: Normal Affect, Normal Mood - Skin Skin Exam: Dry, Intact Assessment and Plan (1) DM2 (diabetes mellitus, type 2) Status: Acute (2) HLD (hyperlipidemia) Status: Acute (3) HTN (hypertension) Status: Acute (4) Left pontine CVA Assessment & Plan: plan for physical, occupational therapy range of motion, strenghtenign and gait training Status: Acute
--- NOTE | 2017-09-28 10:54 | CP.PCM.PN ---
Subjective - Date & Time of Evaluation Date of Evaluation: 09/28/17 Time of Evaluation: 10:25 - Subjective Subjective: Patient seen and examined. No complaint. Admitted feeling stronger. Objective - Vital Signs/Intake and Output Vital Signs (last 24 hours): Temp Pulse Resp BP Pulse Ox 97.7 F 69 22 143/69 98 09/28/17 09:29 09/28/17 09:29 09/28/17 09:29 09/28/17 09:29 09/28/17 09:29 - Medications Medications: Current Medications Aspirin (Ecotrin) 81 mg PO DAILY [facility] Last Admin: 09/28/17 08:54 Dose: 81 mg Atorvastatin Calcium (Lipitor) 40 mg PO HS [facility] Last Admin: 09/27/17 21:15 Dose: 40 mg Clopidogrel Bisulfate (Plavix) 75 mg PO DAILY [facility] Last Admin: 09/28/17 08:52 Dose: 75 mg Diltiazem HCl (Cardizem Cd) 180 mg PO DAILY [facility] Last Admin: 09/28/17 08:54 Dose: 180 mg Docusate Sodium (Colace) 100 mg PO BID [facility] Last Admin: 09/28/17 08:52 Dose: 100 mg Enoxaparin Sodium (Lovenox) 40 mg SC DAILY [facility] PRN Reason: Protocol Last Admin: 09/28/17 08:52 Dose: 40 mg Hydrochlorothiazide (Hydrodiuril) 25 mg PO DAILY [facility] Last Admin: 09/28/17 08:52 Dose: 25 mg Insulin Human Lispro (Humalog) 0 units SC 0630 [facility] PRN Reason: Protocol Last Admin: 09/28/17 06:30 Dose: Not Given Losartan Potassium (Cozaar) 100 mg PO DAILY [facility] Last Admin: 09/28/17 08:54 Dose: 100 mg Magnesium Hydroxide (Milk Of Magnesia) 30 ml PO DAILY PRN PRN Reason: Constipation Last Admin: 09/23/17 14:32 Dose: 30 ml Metformin HCl (Glucophage) 1,000 mg PO BIDWM [facility] Last Admin: 09/28/17 08:51 Dose: 1,000 mg Ondansetron HCl (Zofran Inj) 4 mg IVP Q6 PRN PRN Reason: Nausea/Vomiting Last Admin: 09/25/17 13:50 Dose: 4 mg Pantoprazole Sodium (Protonix Ec Tab) 40 mg PO DAILY [facility] Last Admin: 09/28/17 08:54 Dose: 40 mg - Labs Labs: 09/28/17 05:20 09/28/17 05:20 - Constitutional Appears: No Acute Distress - Head Exam Head Exam: ATRAUMATIC - Eye Exam Eye Exam: absent: Scleral icterus - ENT Exam ENT Exam: Mucous Membranes Moist - Neck Exam Neck Exam: absent: Meningismus - Respiratory Exam Respiratory Exam: absent: Rhonchi, Wheezes, Respiratory Distress - Cardiovascular Exam Cardiovascular Exam: REGULAR RHYTHM, +S1, +S2 - GI/Abdominal Exam GI & Abdominal Exam: Soft. absent: Tenderness - Rectal Exam Rectal Exam: Deferred - Neurological Exam Neurological Exam: Alert, Oriented x3 - Psychiatric Exam Psychiatric exam: Normal Affect - Skin Skin Exam: Dry, Intact Assessment and Plan - Assessment and Plan (Free Text) Assessment: 62 yo female with history of DM2, HLD and HTN was admitted at [facility] on 09/20/2017 because of sudden onset of right sided weakness and slurred speech which resolved by the time she was seen in the ER. Imaging however showed acute left pontine infarct. She was transferred to [facility] for acute rehab. 1. CVA continue ASA, Plavix and statin BP control continue PT/OT 2. DM2 BS controlled continue Metformin 1000mg PO BID 3. HTN BP stable continue Diltiazem, HCTZ and Losartan 4. DVT prophylaxis on Lovenox
[2017-09-29] MEDS: Insulin Lispro (humaLOG) 100 Units/ml Inj SC SCH (07:00)
[2017-09-29] MEDS: diltiaZEM 180 mg/24 Hours CD Cap PO SCH (08:48)
[2017-09-29] MEDS: Pantoprazole 40 mg EC Tab PO SCH (08:49)
[2017-09-29] MEDS: Enoxaparin 40 mg Syringe SC SCH (08:49)
[2017-09-30] MEDS: Insulin Lispro (humaLOG) 100 Units/ml Inj SC SCH (06:50)
[2017-09-30] MEDS: Pantoprazole 40 mg EC Tab PO SCH (08:30)
[2017-09-30] MEDS: Enoxaparin 40 mg Syringe SC SCH (08:30)
[2017-09-30] MEDS: diltiaZEM 180 mg/24 Hours CD Cap PO SCH (08:31)
[2017-10-01] MEDS: Insulin Lispro (humaLOG) 100 Units/ml Inj SC SCH (06:10)
[2017-10-01 07:06] LABS: BLOOD UREA NITROGEN 16 mg/dl (7-17); CALCIUM 9.8 mg/dL (8.4-10.2); GFR AFRICAN-AMERICAN > 60; GFR NON-AFRICAN AMERICAN > 60
[2017-10-01 07:10] LABS: HEMOGLOBIN 13.1 g/dL (12.0-16.0); MEAN CELL VOLUME 85.6 fl (81.0-99.0); MEAN CORPUSCULAR HEMOGLOBIN 28.7 pg (27.0-31.0); MEAN CORPUSCULAR HGB CONC 33.5 g/dL (33.0-37.0); RBC 4.57 Mil/uL (3.80-5.20); RED CELL DISTRIBUTION WIDTH 13.6 % (11.5-14.5); WHITE BLOOD COUNT 3.9 K/uL (4.8-10.8)
[2017-10-01] MEDS: diltiaZEM 180 mg/24 Hours CD Cap PO SCH (08:22)
[2017-10-01] MEDS: Pantoprazole 40 mg EC Tab PO SCH (08:23)
[2017-10-01] MEDS: Enoxaparin 40 mg Syringe SC SCH (08:23)
--- NOTE | 2017-10-01 17:48 | CP.PCM.PN ---
Subjective - Date & Time of Evaluation Date of Evaluation: 10/01/17 Time of Evaluation: 10:25 - Subjective Subjective: Patient seen and examined. No complaint. Objective - Vital Signs/Intake and Output Vital Signs (last 24 hours): Temp Pulse Resp BP Pulse Ox 98.1 F 70 21 135/59 L 99 10/01/17 10:00 10/01/17 10:00 10/01/17 10:00 10/01/17 10:00 10/01/17 10:00 - Medications Medications: Current Medications Aspirin (Ecotrin) 81 mg PO DAILY [facility] Last Admin: 10/01/17 08:23 Dose: 81 mg Atorvastatin Calcium (Lipitor) 40 mg PO HS [facility] Last Admin: 09/30/17 21:23 Dose: 40 mg Clopidogrel Bisulfate (Plavix) 75 mg PO DAILY [facility] Last Admin: 10/01/17 08:23 Dose: 75 mg Diltiazem HCl (Cardizem Cd) 180 mg PO DAILY [facility] Last Admin: 10/01/17 08:22 Dose: 180 mg Docusate Sodium (Colace) 100 mg PO BID [facility] Last Admin: 10/01/17 17:21 Dose: 100 mg Enoxaparin Sodium (Lovenox) 40 mg SC DAILY [facility] PRN Reason: Protocol Last Admin: 10/01/17 08:23 Dose: 40 mg Hydrochlorothiazide (Hydrodiuril) 25 mg PO DAILY [facility] Last Admin: 10/01/17 08:23 Dose: 25 mg Insulin Human Lispro (Humalog) 0 units SC 0630 [facility] PRN Reason: Protocol Last Admin: 10/01/17 06:10 Dose: Not Given Losartan Potassium (Cozaar) 100 mg PO DAILY [facility] Last Admin: 10/01/17 08:22 Dose: 100 mg Magnesium Hydroxide (Milk Of Magnesia) 30 ml PO DAILY PRN PRN Reason: Constipation Last Admin: 09/23/17 14:32 Dose: 30 ml Metformin HCl (Glucophage) 1,000 mg PO BIDWM [facility] Last Admin: 10/01/17 17:21 Dose: 1,000 mg Ondansetron HCl (Zofran Inj) 4 mg IVP Q6 PRN PRN Reason: Nausea/Vomiting Last Admin: 09/28/17 20:38 Dose: 4 mg Pantoprazole Sodium (Protonix Ec Tab) 40 mg PO DAILY [facility] Last Admin: 10/01/17 08:23 Dose: 40 mg - Labs Labs: 10/01/17 05:25 10/01/17 05:25 - Constitutional Appears: No Acute Distress - Head Exam Head Exam: ATRAUMATIC - Eye Exam Eye Exam: absent: Scleral icterus - ENT Exam ENT Exam: Mucous Membranes Moist - Neck Exam Neck Exam: absent: Meningismus - Respiratory Exam Respiratory Exam: absent: Rales, Rhonchi, Wheezes, Respiratory Distress - Cardiovascular Exam Cardiovascular Exam: REGULAR RHYTHM, +S1, +S2 - GI/Abdominal Exam GI & Abdominal Exam: Soft. absent: Tenderness - Rectal Exam Rectal Exam: Deferred - Neurological Exam Neurological Exam: Alert, Oriented x3 - Psychiatric Exam Psychiatric exam: Normal Affect - Skin Skin Exam: Dry, Intact Assessment and Plan - Assessment and Plan (Free Text) Assessment: 62 yo female with history of DM2, HLD and HTN [place] [facility] [place] because of sudden onset of right sided weakness and slurred speech which resolved by the time she was seen in the ER. Imaging however showed acute left pontine infarct. She was transferred to [facility] for acute rehab. 1. CVA continue ASA, Plavix and statin BP control continue PT/OT 2. DM2 BS controlled continue Metformin 1000mg PO BID 3. HTN BP stable continue Diltiazem, HCTZ and Losartan 4. DVT prophylaxis on Lovenox
[2017-10-02] MEDS: Insulin Lispro (humaLOG) 100 Units/ml Inj SC SCH (06:20)
[2017-10-02] MEDS: diltiaZEM 180 mg/24 Hours CD Cap PO SCH (08:57)
[2017-10-02] MEDS: Pantoprazole 40 mg EC Tab PO SCH (08:57)
[2017-10-02] MEDS: Enoxaparin 40 mg Syringe SC SCH (08:58)
--- NOTE | 2017-10-02 13:49 | CP.PCM.PN ---
Subjective - Date & Time of Evaluation Date of Evaluation: 09/30/17 Time of Evaluation: 10:35 - Subjective Subjective: no acute complaints Objective - Vital Signs/Intake and Output Vital Signs (last 24 hours): Temp Pulse Resp BP Pulse Ox 97.7 F 82 20 125/69 98 10/02/17 08:02 10/02/17 08:57 10/02/17 08:02 10/02/17 08:57 10/02/17 08:02 - Medications Medications: Current Medications Aspirin (Ecotrin) 81 mg PO DAILY [facility] Last Admin: 10/02/17 08:57 Dose: 81 mg Atorvastatin Calcium (Lipitor) 40 mg PO HS [facility] Last Admin: 10/01/17 22:24 Dose: 40 mg Clopidogrel Bisulfate (Plavix) 75 mg PO DAILY [facility] Last Admin: 10/02/17 08:57 Dose: 75 mg Diltiazem HCl (Cardizem Cd) 180 mg PO DAILY [facility] Last Admin: 10/02/17 08:57 Dose: 180 mg Docusate Sodium (Colace) 100 mg PO BID [facility] Last Admin: 10/02/17 08:58 Dose: 100 mg Enoxaparin Sodium (Lovenox) 40 mg SC DAILY [facility] PRN Reason: Protocol Last Admin: 10/02/17 08:58 Dose: 40 mg Hydrochlorothiazide (Microzide) 12.5 mg PO DAILY [facility] Last Admin: 10/02/17 11:54 Dose: 12.5 mg Insulin Human Lispro (Humalog) 0 units SC 0630 [facility] PRN Reason: Protocol Last Admin: 10/02/17 06:20 Dose: Not Given Losartan Potassium (Cozaar) 100 mg PO DAILY [facility] Last Admin: 10/02/17 08:56 Dose: 100 mg Magnesium Hydroxide (Milk Of Magnesia) 30 ml PO DAILY PRN PRN Reason: Constipation Last Admin: 09/23/17 14:32 Dose: 30 ml Metformin HCl (Glucophage) 1,000 mg PO BIDWM [facility] Last Admin: 10/02/17 08:56 Dose: 1,000 mg Ondansetron HCl (Zofran Inj) 4 mg IVP Q6 PRN PRN Reason: Nausea/Vomiting Last Admin: 09/28/17 20:38 Dose: 4 mg Pantoprazole Sodium (Protonix Ec Tab) 40 mg PO DAILY [facility] Last Admin: 10/02/17 08:57 Dose: 40 mg - Labs Labs: 10/01/17 05:25 10/01/17 05:25 - Head Exam Head Exam: ATRAUMATIC, NORMAL INSPECTION, NORMOCEPHALIC - Eye Exam Eye Exam: EOMI, Normal appearance, PERRL Pupil Exam: NORMAL ACCOMODATION, PERRL - ENT Exam ENT Exam: Mucous Membranes Moist, Normal Exam - Neck Exam Neck Exam: Full ROM, Normal Inspection. absent: Lymphadenopathy - Respiratory Exam Respiratory Exam: Clear to Ausculation Bilateral, NORMAL BREATHING PATTERN - Cardiovascular Exam Cardiovascular Exam: REGULAR RHYTHM, +S1, +S2. absent: Murmur - GI/Abdominal Exam GI & Abdominal Exam: Soft, Normal Bowel Sounds. absent: Tenderness - Exam External exam: NORMAL EXTERNAL EXAM - Extremities Exam Extremities Exam: Full ROM, Normal Capillary Refill, Normal Inspection. absent : Joint Swelling, Pedal Edema - Back Exam Back Exam: NORMAL INSPECTION - Neurological Exam Neurological Exam: Alert, Awake Neuro motor strength exam: Left Upper Extremity: 3, Right Upper Extremity: 3, Left Lower Extremity: 3, Right Lower Extremity: 3 - Psychiatric Exam Psychiatric exam: Normal Affect, Normal Mood - Skin Skin Exam: Dry Assessment and Plan (1) DM2 (diabetes mellitus, type 2) Status: Acute (2) HLD (hyperlipidemia) Status: Acute (3) HTN (hypertension) Status: Acute (4) Left pontine CVA Assessment & Plan: plan for pt, ot rec therapy Status: Acute
--- NOTE | 2017-10-02 13:51 | CP.PCM.PN ---
Subjective - Date & Time of Evaluation Date of Evaluation: 10/02/17 Time of Evaluation: 13:00 - Subjective Subjective: no acute complaints at present Objective - Vital Signs/Intake and Output Vital Signs (last 24 hours): Temp Pulse Resp BP Pulse Ox 97.7 F 82 20 125/69 98 10/02/17 08:02 10/02/17 08:57 10/02/17 08:02 10/02/17 08:57 10/02/17 08:02 - Medications Medications: Current Medications Aspirin (Ecotrin) 81 mg PO DAILY [facility] Last Admin: 10/02/17 08:57 Dose: 81 mg Atorvastatin Calcium (Lipitor) 40 mg PO HS [facility] Last Admin: 10/01/17 22:24 Dose: 40 mg Clopidogrel Bisulfate (Plavix) 75 mg PO DAILY [facility] Last Admin: 10/02/17 08:57 Dose: 75 mg Diltiazem HCl (Cardizem Cd) 180 mg PO DAILY [facility] Last Admin: 10/02/17 08:57 Dose: 180 mg Docusate Sodium (Colace) 100 mg PO BID [facility] Last Admin: 10/02/17 08:58 Dose: 100 mg Enoxaparin Sodium (Lovenox) 40 mg SC DAILY [facility] PRN Reason: Protocol Last Admin: 10/02/17 08:58 Dose: 40 mg Hydrochlorothiazide (Microzide) 12.5 mg PO DAILY [facility] Last Admin: 10/02/17 11:54 Dose: 12.5 mg Insulin Human Lispro (Humalog) 0 units SC 0630 [facility] PRN Reason: Protocol Last Admin: 10/02/17 06:20 Dose: Not Given Losartan Potassium (Cozaar) 100 mg PO DAILY [facility] Last Admin: 10/02/17 08:56 Dose: 100 mg Magnesium Hydroxide (Milk Of Magnesia) 30 ml PO DAILY PRN PRN Reason: Constipation Last Admin: 09/23/17 14:32 Dose: 30 ml Metformin HCl (Glucophage) 1,000 mg PO BIDWM [facility] Last Admin: 10/02/17 08:56 Dose: 1,000 mg Ondansetron HCl (Zofran Inj) 4 mg IVP Q6 PRN PRN Reason: Nausea/Vomiting Last Admin: 09/28/17 20:38 Dose: 4 mg Pantoprazole Sodium (Protonix Ec Tab) 40 mg PO DAILY [facility] Last Admin: 10/02/17 08:57 Dose: 40 mg - Labs Labs: 10/01/17 05:25 10/01/17 05:25 - Head Exam Head Exam: ATRAUMATIC, NORMAL INSPECTION, NORMOCEPHALIC - Eye Exam Eye Exam: EOMI, Normal appearance, PERRL Pupil Exam: NORMAL ACCOMODATION, PERRL - ENT Exam ENT Exam: Mucous Membranes Moist, Normal Exam - Neck Exam Neck Exam: Full ROM, Normal Inspection. absent: Lymphadenopathy - Respiratory Exam Respiratory Exam: Clear to Ausculation Bilateral, NORMAL BREATHING PATTERN - Cardiovascular Exam Cardiovascular Exam: REGULAR RHYTHM, +S1, +S2. absent: Murmur - GI/Abdominal Exam GI & Abdominal Exam: Soft, Normal Bowel Sounds. absent: Tenderness - Rectal Exam Rectal Exam: NORMAL INSPECTION - Exam External exam: NORMAL EXTERNAL EXAM - Extremities Exam Extremities Exam: Full ROM, Normal Capillary Refill, Normal Inspection. absent : Joint Swelling, Pedal Edema - Back Exam Back Exam: NORMAL INSPECTION - Neurological Exam Neurological Exam: Alert, Awake Neuro motor strength exam: Left Upper Extremity: 3, Right Upper Extremity: 3, Left Lower Extremity: 3, Right Lower Extremity: 3 - Psychiatric Exam Psychiatric exam: Normal Affect, Normal Mood - Skin Skin Exam: Dry, Intact Assessment and Plan (1) DM2 (diabetes mellitus, type 2) Status: Acute (2) HLD (hyperlipidemia) Status: Acute (3) HTN (hypertension) Status: Acute (4) Left pontine CVA Assessment & Plan: plan for pt, ot rec therapy Status: Acute
[2017-10-03] MEDS: Insulin Lispro (humaLOG) 100 Units/ml Inj SC SCH (06:33)
[2017-10-03] MEDS: diltiaZEM 180 mg/24 Hours CD Cap PO SCH (08:10)
[2017-10-03] MEDS: Enoxaparin 40 mg Syringe SC SCH (08:11)
[2017-10-03] MEDS: Pantoprazole 40 mg EC Tab PO SCH (08:11)
--- NOTE | 2017-10-03 10:45 | CP.PCM.PN ---
Subjective - Date & Time of Evaluation Date of Evaluation: 10/03/17 Time of Evaluation: 10:45 - Subjective Subjective: Patient seen and examined during physical therapy. No new complaints today. She is continuing to tolerate her therapies well. Denies f/c/n/v/d/cp/sob Objective - Vital Signs/Intake and Output Vital Signs (last 24 hours): Temp Pulse Resp BP Pulse Ox 97.5 F L 65 20 117/51 L 98 10/03/17 07:54 10/03/17 08:10 10/03/17 07:54 10/03/17 08:10 10/03/17 07:54 - Medications Medications: Current Medications Aspirin (Ecotrin) 81 mg PO DAILY [facility] Last Admin: 10/03/17 08:10 Dose: 81 mg Atorvastatin Calcium (Lipitor) 40 mg PO HS [facility] Last Admin: 10/02/17 21:37 Dose: 40 mg Clopidogrel Bisulfate (Plavix) 75 mg PO DAILY [facility] Last Admin: 10/03/17 08:11 Dose: 75 mg Diltiazem HCl (Cardizem Cd) 180 mg PO DAILY [facility] Last Admin: 10/03/17 08:10 Dose: 180 mg Docusate Sodium (Colace) 100 mg PO BID [facility] Last Admin: 10/03/17 08:10 Dose: 100 mg Enoxaparin Sodium (Lovenox) 40 mg SC DAILY [facility] PRN Reason: Protocol Last Admin: 10/03/17 08:11 Dose: 40 mg Hydrochlorothiazide (Microzide) 12.5 mg PO DAILY [facility] Last Admin: 10/03/17 08:11 Dose: 12.5 mg Insulin Human Lispro (Humalog) 0 units SC 0630 [facility] PRN Reason: Protocol Last Admin: 10/03/17 06:33 Dose: Not Given Losartan Potassium (Cozaar) 100 mg PO DAILY [facility] Last Admin: 10/03/17 08:10 Dose: 100 mg Magnesium Hydroxide (Milk Of Magnesia) 30 ml PO DAILY PRN PRN Reason: Constipation Last Admin: 09/23/17 14:32 Dose: 30 ml Metformin HCl (Glucophage) 1,000 mg PO BIDWM [facility] Last Admin: 10/03/17 08:10 Dose: 1,000 mg Ondansetron HCl (Zofran Inj) 4 mg IVP Q6 PRN PRN Reason: Nausea/Vomiting Last Admin: 09/28/17 20:38 Dose: 4 mg Pantoprazole Sodium (Protonix Ec Tab) 40 mg PO DAILY [facility] Last Admin: 10/03/17 08:11 Dose: 40 mg - Labs Labs: 10/01/17 05:25 10/01/17 05:25 - Additional Findings Additional findings: Physical exam: Constitutional- cooperative, awake, alert Head- NCAT, PERRL Eye- PERRL, EOMI ENT- normal exam, MMM. Neck- normal inspection, supple, no JVD Respiratory- CTAB, no wheezes rales rhonchi Cardiovascular- RRR, +S1, +S2 no MRG GI/Abdominal- normal bowel sounds, soft, no mass, no hsm Skin- warm, dry Extremities Exam- normal capillary refill, normal inspection Neurological Exam- mild right upper extremity weakness. Alert, awake, oriented Psych- normal mood, normal affect Assessment and Plan - Assessment and Plan (Free Text) Plan: 62 yo female with history of DM2, HLD and HTN was admitted at [facility] [place] [place] on 09/20/2017 because of sudden onset of right sided weakness and slurred speech which resolved by the time she was seen in the ER. Imaging however showed acute left pontine infarct. She was transferred to [facility] for acute rehab. 1) Left pontine CVA -Cont ASA, Plavix, Statin -BP control -PT/OT, Rehab consult -Consider Echo if no documentation found as part of w/u 2) DM2 -Cont metformin 1000 mg po BID -DM diet 3) HTN - BP stable - Continue Diltiazem - Continue HCTZ - Continue Losartan 4) PPx -- SQ Lovenox, Protonix for GI PPx while on lovenox/asa/plavix Status: Acute
--- NOTE | 2017-10-03 12:21 | PSY.TMCNF ---
Nursing - Vital Signs Vital Signs (Last 8 hours): Vital Signs 10/03/17 10/03/17 10/03/17 07:54 08:10 10:54 Temperature 97.5 F L Pulse Rate 65 65 82 Respiratory 20 Rate Blood Pressure 117/51 L 117/51 L O2 Sat by Pulse 98 98 Oximetry 10/03/17 11:17 Temperature 97.5 F L Pulse Rate 65 Respiratory 20 Rate Blood Pressure 117/51 L O2 Sat by Pulse Oximetry Pain: 0 - Precautions: Precautions: Fall Prevention - Medications/Other Issues Comment: Safety - Consults Comment: Dr. Hyman - Toileting Toileting: Supervision - Bladder Management Bladder Pattern: Normal Voiding Method: Toilet Bladder Management: Supervision - Bowel Management Bowel Pattern: Normal Bowel Management: Supervision - Transfers Transfers: Supervision - ADL's ADL's: Contact Guard - Pain Management Comments: denies - Patient/Family Teaching Comments: Post CVA care. - Goals/Time Frame Comments: Per multidiscplinary team - Provider Provider: Tia López Physical Therapy - Bed Mobility Bed Mobility: Verbal Cues, Contact Guard Comment: CS rolling - Transfers Sit to Stand: Supervision, Verbal Cues, Contact Guard - Ambulation Level of Assistance: Supervision, Verbal Cues, Contact Guard Distance (ft.): 400 Assistive Devices: N/A - Stair Negotiation Stairs: Level of Assistance: Verbal Cues, Contact Guard Number of Stairs: 11 Stairs: Assistive Devices: Right Handrail, Single point cane - Standing Balance Static Stand: Supervision Dynamic Stand: Contact Guard Assist Comment: w/ SC - Pain Pain (assessed during therapy session): 0 - Insight/Carryover Insight/Carryover: Good - Patient/Family Education Comment: Patient's mom educated on proper technique for transfer, mobility , and self care to prep for d/c. Pt's caregiver training 10/04 - Assessment/Plan Assessment: Pt is 62 yo female presenting to acute rehab s/p CVA. pt demonstrates decreased standing balance/tolerance, endurance, fine motor control and coordination, and hand strength, impacting increased independence with ADLs and functional activities. Patient will benefit from skilled OT services 5-6x/week to address above deficits to increase independence with adls and iadls for discharge. 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 Patient 's mother was provided with caregiver training . pt's recieivng training 10/04 - Goals Timeframe: 1 week Goals: mod I tub bench transfers. mod I commode transfers. mod I transfers to bed and w/c. mod I lb self care. mod I Ub self care - Provider Therapist: Milagro Crenshaw PT License Number: [id number] Occupational Therapy - Arousal/Attention/Orientation Patient Orientation: Person, Place, Time, Appropriate to Age, Appropriate to Situation - ADL/IADL Self Feeding: Set-up Help Grooming: Set-up Help Bathing-Upper Extremity: Supervision Bathing-Lower Extremity: Supervision Dressing-Upper Extremity: Set-up Help Dressing-Lower Extremity: Supervision Comment: pt uses lb AE for dressing/bathing. reccommend LB AE - Sitting Balance Static Sitting: Independent without upper extremity support Dynamic Sitting: Requires supervision - Transfers Wheelchair to Bed Transfers: Supervision Toilet Transfers: Supervision Tub Transfers: Supervision Comment: pt uses tub transfer bench - Wheelchair Management Level of Assistance: Not Applicable - Upper Extremity Status Right Upper Extremity Comment: WFL Left Upper Extremity Comment: WFL - Pain Pain (assessed during therapy session): 0 - Insight/Carryover Insight/Carryover: Good - Patient/Family Education Comment: Patient's mom educated on proper technique for transfer, mobility , and self care to prep for d/c. Pt's caregiver training 10/04 - Assessment/Plan Assessment: Pt is 62 yo female presenting to acute rehab s/p CVA. pt demonstrates decreased standing balance/tolerance, endurance, fine motor control and coordination, and hand strength, impacting increased independence with ADLs and functional activities. Patient will benefit from skilled OT services 5-6x/week to address above deficits to increase independence with adls and iadls for discharge. 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 Patient 's mother was provided with caregiver training . pt's recieivng training 10/04 - Goals Timeframe: 1 week Goals: mod I tub bench transfers. mod I commode transfers. mod I transfers to bed and w/c. mod I lb self care. mod I Ub self care - Provider Therapist: DANIEL Young/Camilo License Number: [id number] Speech Therapy - Plan Assessment: Pt is 62 yo female presenting to acute rehab s/p CVA. pt demonstrates decreased standing balance/tolerance, endurance, fine motor control and coordination, and hand strength, impacting increased independence with ADLs and functional activities. Patient will benefit from skilled OT services 5-6x/week to address above deficits to increase independence with adls and iadls for discharge. 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 Patient 's mother was provided with caregiver training . pt's recieivng training 10/04 Recreational Therapy - Participation Participation: Participates in Individual and/or Group Sessions - Attendance Attendance: 5-6 times per week - Activities Leisure Activities: Cards and Games - Socialization Level of Socialization: Initiates/interacts freely with care givers and peer - Diversional Time Diversional Time: reading, word searches in room - Assessment Assessment/Plan: Pt is 62 yo female presenting to acute rehab s/p CVA. pt demonstrates decreased standing balance/tolerance, endurance, fine motor control and coordination, and hand strength, impacting increased independence with ADLs and functional activities. Patient will benefit from skilled OT services 5-6x/week to address above deficits to increase independence with adls and iadls for discharge. 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 Patient 's mother was provided with caregiver training . pt's recieivng training 10/04 - Provider Therapist: Vandana Kc, [employer] #[id number] Nutrition - Current Diet Current Diet/ Supplement/ Feedings: Moderate consistent CHO heart healthy diet - Appetite Percent Meal Consumed: 75-100% - Comments Comments: Post CVA care. - Assessment/Goals/Time Frame Assessment/Goals/Time Frame: Safety - Provider Provider: Shanika Tucker RD Case Management - Psychosocial Assessment Support Systems: Rick Young (spouse)- [phone] Psychological Interventions/Needs: Patient is alert and oriented x3 and able to verbalize needs. Patient cooperative and motivated for therapy. Patient/Family Meeting: CM met with patient and rehab team Intervention/Goal/Outcome:: 1. Goal: Mod I overall. 2. Plan: Home with VNS vs outpatient dependent on progress. 3. DME needs. 4. f/u appts. 5. continued emotional support. 6. continued stay auth, LAD: 09/27. 7. tentative discharge date : 10/06/2017. 8. caregiver training with spouse arranged with spouse on 10/04 at 2: 30pm - Discharge Plan Discharge Plan: Home with services, Outpatient rehab - Provider Provider: LESLIE Fam, [employer] License Number: [id number] Rehabilitation Plan - Treatment Plan Treatment Plan: Physical Therapy, Occupational Therapy, Dietary, Patient/Family Education - Recommendation Recommendation: Physical Therapy, Occupational Therapy, Dietary, Patient/Family Education - Discharge Plan Discharge to: Home
--- NOTE | 2017-10-03 16:39 | CP.PCM.PN ---
Subjective - Date & Time of Evaluation Date of Evaluation: 10/03/17 Time of Evaluation: 16:38 - Subjective Subjective: Patient seen in room doing dexterity exercises on her own denies sob/cp continue current care Objective - Vital Signs/Intake and Output Vital Signs (last 24 hours): Temp Pulse Resp BP Pulse Ox 97.5 F L 65 20 117/51 L 98 10/03/17 11:17 10/03/17 11:17 10/03/17 11:17 10/03/17 11:17 10/03/17 10:54 - Medications Medications: Current Medications Aspirin (Ecotrin) 81 mg PO DAILY [facility] Last Admin: 10/03/17 08:10 Dose: 81 mg Atorvastatin Calcium (Lipitor) 40 mg PO HS [facility] Last Admin: 10/02/17 21:37 Dose: 40 mg Clopidogrel Bisulfate (Plavix) 75 mg PO DAILY [facility] Last Admin: 10/03/17 08:11 Dose: 75 mg Diltiazem HCl (Cardizem Cd) 180 mg PO DAILY [facility] Last Admin: 10/03/17 08:10 Dose: 180 mg Docusate Sodium (Colace) 100 mg PO BID [facility] Last Admin: 10/03/17 08:10 Dose: 100 mg Enoxaparin Sodium (Lovenox) 40 mg SC DAILY [facility] PRN Reason: Protocol Last Admin: 10/03/17 08:11 Dose: 40 mg Hydrochlorothiazide (Microzide) 12.5 mg PO DAILY [facility] Last Admin: 10/03/17 08:11 Dose: 12.5 mg Insulin Human Lispro (Humalog) 0 units SC 0630 [facility] PRN Reason: Protocol Last Admin: 10/03/17 06:33 Dose: Not Given Losartan Potassium (Cozaar) 100 mg PO DAILY [facility] Last Admin: 10/03/17 08:10 Dose: 100 mg Magnesium Hydroxide (Milk Of Magnesia) 30 ml PO DAILY PRN PRN Reason: Constipation Last Admin: 09/23/17 14:32 Dose: 30 ml Metformin HCl (Glucophage) 1,000 mg PO BIDWM [facility] Last Admin: 10/03/17 08:10 Dose: 1,000 mg Ondansetron HCl (Zofran Inj) 4 mg IVP Q6 PRN PRN Reason: Nausea/Vomiting Last Admin: 09/28/17 20:38 Dose: 4 mg Pantoprazole Sodium (Protonix Ec Tab) 40 mg PO DAILY [facility] Last Admin: 10/03/17 08:11 Dose: 40 mg - Labs Labs: 10/01/17 05:25 10/01/17 05:25
[2017-10-04 05:33] LABS: HEMOGLOBIN 12.8 g/dL (12.0-16.0); MEAN CELL VOLUME 86.7 fl (81.0-99.0); MEAN CORPUSCULAR HEMOGLOBIN 28.7 pg (27.0-31.0); MEAN CORPUSCULAR HGB CONC 33.1 g/dL (33.0-37.0); RBC 4.45 Mil/uL (3.80-5.20); RED CELL DISTRIBUTION WIDTH 13.8 % (11.5-14.5); WHITE BLOOD COUNT 4.4 K/uL (4.8-10.8)
[2017-10-04 05:51] LABS: BLOOD UREA NITROGEN 18 mg/dl (7-17); CALCIUM 9.5 mg/dL (8.4-10.2); GFR AFRICAN-AMERICAN > 60; GFR NON-AFRICAN AMERICAN > 60
[2017-10-04] MEDS: Insulin Lispro (humaLOG) 100 Units/ml Inj SC SCH (06:33)
[2017-10-04] MEDS: diltiaZEM 180 mg/24 Hours CD Cap PO SCH (08:24)
[2017-10-04] MEDS: Pantoprazole 40 mg EC Tab PO SCH (08:24)
[2017-10-04] MEDS: Enoxaparin 40 mg Syringe SC SCH (08:24)
[2017-10-04 20:41] VITALS: RESP 20
[2017-10-05] MEDS: Insulin Lispro (humaLOG) 100 Units/ml Inj SC SCH (05:36)
[2017-10-05] MEDS: Pantoprazole 40 mg EC Tab PO SCH (09:10)
[2017-10-05] MEDS: diltiaZEM 180 mg/24 Hours CD Cap PO SCH (09:10)
[2017-10-05] MEDS: Enoxaparin 40 mg Syringe SC SCH (09:11)
--- NOTE | 2017-10-05 17:37 | CP.PCM.PN ---
Subjective - Date & Time of Evaluation Date of Evaluation: 10/05/17 Time of Evaluation: 17:36 - Subjective Subjective: Dr Hunt coverage for Dr Hyman She is doing very well set for d/c home tomorrow very appreciative to all the staff Objective - Vital Signs/Intake and Output Vital Signs (last 24 hours): Temp Pulse Resp BP Pulse Ox 97.5 F L 91 H 20 159/85 H 97 10/05/17 08:33 10/05/17 09:10 10/05/17 08:33 10/05/17 09:10 10/05/17 08:33 - Medications Medications: Current Medications Aspirin (Ecotrin) [address] [facility] Last Admin: 10/05/17 09:09 Dose: 81 mg Atorvastatin Calcium (Lipitor) [address] [facility] Last Admin: 10/04/17 21:04 Dose: 40 mg Clopidogrel Bisulfate (Plavix) [address] [facility] Last Admin: 10/05/17 09:11 Dose: 75 mg Diltiazem HCl (Cardizem Cd) [address] [facility] Last Admin: 10/05/17 09:10 Dose: 180 mg Docusate Sodium (Colace) [address] [facility] Last Admin: 10/05/17 09:09 Dose: 100 mg Enoxaparin Sodium (Lovenox) [address] [facility] PRN Reason: Protocol Last Admin: 10/05/17 09:11 Dose: 40 mg Hydrochlorothiazide (Microzide) 12.[address] [facility] Last Admin: 10/05/17 09:11 Dose: 12.5 mg Insulin Human Lispro (Humalog) [address] [facility] PRN Reason: Protocol Last Admin: 10/05/17 05:36 Dose: Not Given Losartan Potassium (Cozaar) [address] [facility] Last Admin: 10/05/17 09:10 Dose: 100 mg Magnesium Hydroxide (Milk Of Magnesia) 30 ml PO DAILY PRN PRN Reason: Constipation Last Admin: 09/23/17 14:32 Dose: 30 ml Metformin HCl (Glucophage) 1,[address] [facility] Last Admin: 10/05/17 08:00 Dose: 1,000 mg Ondansetron HCl (Zofran Inj) 4 mg IVP Q6 PRN PRN Reason: Nausea/Vomiting Last Admin: 09/28/17 20:38 Dose: 4 mg Pantoprazole Sodium (Protonix Ec Tab) 40 mg PO DAILY [facility] Last Admin: 10/05/17 09:10 Dose: 40 mg - Labs Labs: 10/04/17 04:20 10/04/17 04:20
--- NOTE | 2017-10-05 18:09 | CP.PCM.PN ---
Subjective - Date & Time of Evaluation Date of Evaluation: 10/05/17 Time of Evaluation: 10:00 - Subjective Subjective: Patient seen and examined today. She has no complaints at this time and is feeling well. She is continuing to tolerate her therapies well. Denies f/c/n/v/d/cp/sob Objective - Vital Signs/Intake and Output Vital Signs (last 24 hours): Temp Pulse Resp BP Pulse Ox 97.5 F L 91 H 20 159/85 H 97 10/05/17 08:33 10/05/17 09:10 10/05/17 08:33 10/05/17 09:10 10/05/17 08:33 - Medications Medications: Current Medications Aspirin (Ecotrin) 81 mg PO DAILY [facility] Last Admin: 10/05/17 09:09 Dose: 81 mg Atorvastatin Calcium (Lipitor) 40 mg PO HS [facility] Last Admin: 10/04/17 21:04 Dose: 40 mg Clopidogrel Bisulfate (Plavix) 75 mg PO DAILY [facility] Last Admin: 10/05/17 09:11 Dose: 75 mg Diltiazem HCl (Cardizem Cd) 180 mg PO DAILY [facility] Last Admin: 10/05/17 09:10 Dose: 180 mg Docusate Sodium (Colace) 100 mg PO BID [facility] Last Admin: 10/05/17 09:09 Dose: 100 mg Enoxaparin Sodium (Lovenox) 40 mg SC DAILY [facility] PRN Reason: Protocol Last Admin: 10/05/17 09:11 Dose: 40 mg Hydrochlorothiazide (Microzide) 12.5 mg PO DAILY [facility] Last Admin: 10/05/17 09:11 Dose: 12.5 mg Insulin Human Lispro (Humalog) 0 units SC 0630 [facility] PRN Reason: Protocol Last Admin: 10/05/17 05:36 Dose: Not Given Losartan Potassium (Cozaar) 100 mg PO DAILY [facility] Last Admin: 10/05/17 09:10 Dose: 100 mg Magnesium Hydroxide (Milk Of Magnesia) 30 ml PO DAILY PRN PRN Reason: Constipation Last Admin: 09/23/17 14:32 Dose: 30 ml Metformin HCl (Glucophage) 1,000 mg PO BIDWM [facility] Last Admin: 10/05/17 08:00 Dose: 1,000 mg Ondansetron HCl (Zofran Inj) 4 mg IVP Q6 PRN PRN Reason: Nausea/Vomiting Last Admin: 09/28/17 20:38 Dose: 4 mg Pantoprazole Sodium (Protonix Ec Tab) 40 mg PO DAILY [facility] Last Admin: 10/05/17 09:10 Dose: 40 mg - Labs Labs: 10/04/17 04:20 10/04/17 04:20 - Additional Findings Additional findings: Physical exam: Constitutional- cooperative, awake, alert Head- NCAT, PERRL Eye- PERRL, EOMI ENT- normal exam, MMM. Neck- normal inspection, supple, no JVD Respiratory- CTAB, no wheezes rales rhonchi Cardiovascular- RRR, +S1, +S2 no MRG GI/Abdominal- normal bowel sounds, soft, no mass, no hsm Skin- warm, dry Extremities Exam- normal capillary refill, normal inspection Neurological Exam- mild right upper extremity weakness. Alert, awake, oriented Psych- normal mood, normal affect Assessment and Plan - Assessment and Plan (Free Text) Plan: 62 yo female with history of DM2, HLD and HTN was [place] [facility] [place] because of sudden onset of right sided weakness and slurred speech which resolved by the time she was seen in the ER. Imaging however showed acute left pontine infarct. She was transferred to [facility] for acute rehab. 1) Left pontine CVA -Cont ASA, Plavix, Statin -BP control -PT/OT, Rehab consult -Consider Echo if no documentation found as part of w/u 2) DM2 -Cont metformin 1000 mg po BID -DM diet 3) HTN - BP stable - Continue Diltiazem - Continue HCTZ - Continue Losartan 4) PPx -- SQ Lovenox, Protonix for GI PPx while on lovenox/asa/plavix Status: Acute
[2017-10-06] MEDS: Insulin Lispro (humaLOG) 100 Units/ml Inj SC SCH (06:07)
[2017-10-06 08:47] VITALS: BP 156/80; PULSE 78; TEMP 97.6; O2SAT 100
[2017-10-06] MEDS: Pantoprazole 40 mg EC Tab PO SCH (09:08)
[2017-10-06] MEDS: Enoxaparin 40 mg Syringe SC SCH (09:08)
[2017-10-06] MEDS: diltiaZEM 180 mg/24 Hours CD Cap PO SCH (09:09)
--- NOTE | 2017-10-06 11:14 | CP.PCM.DIS ---
Provider - Provider Date of Admission: 09/22/17 19:49 Attending physician: Jr Bailey MD Primary care physician: Ruby Lang MD Consults: Dr Hunt Time Spent in preparation of Discharge (in minutes): 25 Diagnosis - Discharge Diagnosis (1) Left pontine CVA Status: Acute Comment: continue ASA, Plavix and statin. continue PT as outpatient (2) DM2 (diabetes mellitus, type 2) Status: Chronic Comment: continue Metformin 1000mg PO BID (3) HTN (hypertension) Status: Chronic Comment: BP controlled. continue Cardizem, HCTZ and Losartan Hospital Course - Lab Results Lab Results: Most Recent Lab Values WBC 4.4 K/uL (4.8-10.8) L 10/04/17 04:20 RBC 4.45 Mil/uL (3.80-5.20) 10/04/17 04:20 Hgb 12.8 g/dL (12.0-16.0) 10/04/17 04:20 Hct 38.6 % (34.0-47.0) 10/04/17 04:20 MCV 86.7 fl (81.0-99.0) 10/04/17 04:20 MCH 28.7 pg (27.0-31.0) 10/04/17 04:20 MCHC 33.1 g/dL (33.0-37.0) 10/04/17 04:20 RDW 13.8 % (11.5-14.5) 10/04/17 04:20 Plt Count 248 K/uL (130-400) 10/04/17 04:20 Sodium 138 mmol/l (132-148) 10/04/17 04:20 Potassium 4.0 MMOL/L (3.6-5.0) 10/04/17 04:20 Chloride 96 mmol/L (98-107) L 10/04/17 04:20 Carbon Dioxide 28 mmol/L (22-30) 10/04/17 04:20 Anion Gap 18 (10-20) 10/04/17 04:20 BUN 18 mg/dl (7-17) H 10/04/17 04:20 Creatinine 0.9 mg/dl (0.7-1.2) 10/04/17 04:20 Est GFR ( Amer) > 60 10/04/17 04:20 Est GFR (Non-Af Amer) > 60 10/04/17 04:20 POC Glucose (mg/dL) 86 mg/dL (65-110) 10/06/17 05:53 Random Glucose 95 mg/dL (65-105) 10/04/17 04:20 Calcium 9.5 mg/dL (8.4-10.2) 10/04/17 04:20 - Hospital Course Hospital Course: 62 yo female with history of DM2, HLD and HTN was admitted at [facility] [place] on 09/20/2017 because of right sided weakness and slurred speech which resolved by the time she was seen in the ER. Imaging showed acute left pontine infarct. She was transferred to [facility] and did well with rehab. Patient discharged today in stable condition. Discharge Exam - Head Exam Head Exam: ATRAUMATIC, NORMAL INSPECTION, NORMOCEPHALIC - Eye Exam Eye Exam: absent: Scleral icterus - ENT Exam ENT Exam: Mucous Membranes Moist - Respiratory Exam Respiratory Exam: absent: Rhonchi, Wheezes, Respiratory Distress - Cardiovascular Exam Cardiovascular Exam: REGULAR RHYTHM, +S1, +S2 - GI/Abdominal Exam GI & Abdominal Exam: Soft. absent: Tenderness - Rectal Exam Rectal Exam: Deferred - Back Exam Back exam: absent: tenderness - Neurological Exam Neurological exam: Alert, Oriented x3 - Psychiatric Exam Psychiatric exam: Normal Affect - Skin Skin Exam: Dry, Intact Discharge Plan - Discharge Medications Prescriptions: Clopidogrel [Plavix] 75 mg PO DAILY #30 tab - Follow Up Plan Condition: GOOD Disposition: HOME/ ROUTINE Instructions: Stroke (DC), Aspirin, Atorvastatin, Clopidogrel, Diltiazem, Hydrochlorothiazide, Losartan, Metformin, Pantoprazole Referrals: Ruby Lang MD [Primary Care Provider] -
--- NOTE | 2017-10-08 21:13 | CP.PCM.PN ---
Subjective - Date & Time of Evaluation Date of Evaluation: 10/04/17 Time of Evaluation: 12:00 - Subjective Subjective: no acute complaints Objective - Vital Signs/Intake and Output Vital Signs (last 24 hours): Temp Pulse Resp BP Pulse Ox 97.6 F 78 20 156/80 H 100 10/06/17 08:46 10/06/17 09:09 10/06/17 08:46 10/06/17 09:09 10/06/17 08:46 - Labs Labs: 10/04/17 04:20 10/04/17 04:20 - Head Exam Head Exam: ATRAUMATIC, NORMAL INSPECTION, NORMOCEPHALIC - ENT Exam ENT Exam: Mucous Membranes Moist, Normal Exam - Neck Exam Neck Exam: Full ROM, Normal Inspection. absent: Lymphadenopathy - Respiratory Exam Respiratory Exam: Clear to Ausculation Bilateral, NORMAL BREATHING PATTERN - Cardiovascular Exam Cardiovascular Exam: REGULAR RHYTHM, +S1, +S2. absent: Murmur - GI/Abdominal Exam GI & Abdominal Exam: Soft, Normal Bowel Sounds. absent: Tenderness - Rectal Exam Rectal Exam: NORMAL INSPECTION - Exam External exam: NORMAL EXTERNAL EXAM - Extremities Exam Extremities Exam: Full ROM, Normal Capillary Refill, Normal Inspection. absent : Joint Swelling, Pedal Edema - Back Exam Back Exam: NORMAL INSPECTION - Neurological Exam Neurological Exam: Alert, Awake Neuro motor strength exam: Left Upper Extremity: 4, Right Upper Extremity: 3, Left Lower Extremity: 4, Right Lower Extremity: 3 - Psychiatric Exam Psychiatric exam: Normal Affect - Skin Skin Exam: Normal Color Assessment and Plan (1) DM2 (diabetes mellitus, type 2) Status: Chronic (2) HLD (hyperlipidemia) Status: Acute (3) HTN (hypertension) Status: Chronic (4) Left pontine CVA Assessment & Plan: physical, occupational, rec and speech therapy Status: Acute
--- NOTE | 2017-10-08 21:16 | CP.PCM.PN ---
Subjective - Date & Time of Evaluation Date of Evaluation: 10/06/17 Time of Evaluation: 08:30 - Subjective Subjective: no acute complaints Objective - Vital Signs/Intake and Output Vital Signs (last 24 hours): Temp Pulse Resp BP Pulse Ox 97.6 F 78 20 156/80 H 100 10/06/17 08:46 10/06/17 09:09 10/06/17 08:46 10/06/17 09:09 10/06/17 08:46 - Labs Labs: 10/04/17 04:20 10/04/17 04:20 - Head Exam Head Exam: ATRAUMATIC, NORMAL INSPECTION, NORMOCEPHALIC - Eye Exam Eye Exam: EOMI, Normal appearance, PERRL - ENT Exam ENT Exam: Mucous Membranes Moist, Normal Exam - Neck Exam Neck Exam: Full ROM, Normal Inspection. absent: Lymphadenopathy - Respiratory Exam Respiratory Exam: Clear to Ausculation Bilateral, NORMAL BREATHING PATTERN - Cardiovascular Exam Cardiovascular Exam: REGULAR RHYTHM, +S1, +S2. absent: Murmur - GI/Abdominal Exam GI & Abdominal Exam: Soft, Normal Bowel Sounds. absent: Tenderness - Rectal Exam Rectal Exam: NORMAL INSPECTION - Exam External exam: NORMAL EXTERNAL EXAM - Extremities Exam Extremities Exam: Full ROM, Normal Capillary Refill, Normal Inspection. absent : Joint Swelling, Pedal Edema - Back Exam Back Exam: NORMAL INSPECTION - Neurological Exam Neurological Exam: Alert Neuro motor strength exam: Left Upper Extremity: 4, Right Upper Extremity: 3, Left Lower Extremity: 4, Right Lower Extremity: 3 - Psychiatric Exam Psychiatric exam: Normal Affect, Normal Mood - Skin Skin Exam: Normal Color Assessment and Plan (1) DM2 (diabetes mellitus, type 2) Status: Chronic (2) HLD (hyperlipidemia) Status: Acute (3) HTN (hypertension) Status: Chronic (4) Left pontine CVA Assessment & Plan: physical, occupational therapy for DC additional srevices after Dc follow up with PMdm after Dc Status: Acute
== END 2017-10-06 13:45 | disposition home or self-care (01) | DRG 57 ==
PROVIDERS: ADMIT Internal Medicine; ATTEND Internal Medicine
PROC: F07Z9FZ Gait Training/Functional Ambulation Treatment using Assistive, Adaptive, Supportive or Protective Equipment (ICD-10-PCS; principal; 2017-09-22)
PROC: F07M6FZ Therapeutic Exercise Treatment of Musculoskeletal System - Whole Body using Assistive, Adaptive, Supportive or Protective Equipment (ICD-10-PCS; 2017-09-22)
PROC: F08Z4FZ Home Management Treatment using Assistive, Adaptive, Supportive or Protective Equipment (ICD-10-PCS; 2017-09-22)
PROC: F06Z6ZZ Communicative/Cognitive Integration Skills Treatment (ICD-10-PCS; 2017-09-24)
DX: I69.351 Hemiplegia and hemiparesis following cerebral infarction affecting right dominant side (principal); E11.9 Type 2 diabetes mellitus without complications; E78.00 Pure hypercholesterolemia, unspecified; E78.5 Hyperlipidemia, unspecified; I10 Essential (primary) hypertension; K59.00 Constipation, unspecified; Z79.84 Long term (current) use of oral hypoglycemic drugs; Z87.891 Personal history of nicotine dependence; I69.328 Other speech and language deficits following cerebral infarction